=== PATIENT | female | born 1985 ===

== ENCOUNTER 2020-10-29 06:41 | Outpatient (REF) | payer OTHER, SELFPAY ==
[2020-10-29 07:31] LABS: MANUAL DIFF FLAG NO
[2020-10-29 07:42] LABS: Basophils Percent Auto 0.5 % (0-2); Hematocrit 38.3 % (37-47); Hemoglobin 12.9 g/dl (12.0-16.0); Lymphocytes Absolute Auto 1.4 X10*3/uL (1.2-4.9); Lymphocytes Percent Auto 34.7 % (20-40); Mean Corpuscular HGB Conc 33.7 g/dl (31.0-35.0); Mean Corpuscular Hemoglobin 29.7 pg (27.0-33.0); Mean Platelet Volume 11.4 fL (9.4-12.3); Monocytes Absolute Auto 0.2 X10*3/uL (0.1-1.2); Monocytes Percent Auto 5.4 % (2-11); Neutrophils Absolute Auto 2.4 X10*3/uL (2.0-8.3); Neutrophils Percent Auto 58.4 % (45-73); Platelet Count 216 X10*3/uL (160-400); Red Blood Count 4.35 X10*6/uL (4.20-5.50); Red Cell Distribution Width 12.2 % (11.0-16.0); White Blood Count 4.1 X10*3/uL (4.8-10.8)
[2020-10-29 07:47] LABS: Prothrombin Time 11.8 SEC (10.8-13.0)
[2020-10-29 07:51] LABS: Partial Thromboplastin Time 31.4 SEC (24.1-38.0)
[2020-10-29 08:14] LABS: Alanine Aminotransferase 15 U/L (0-31); Alkaline Phosphatase 56 U/L (39-117); Anion Gap 10 (12-20); Aspartate Amino Transferase 17 U/L (5-31); Bilirubin Total 0.2 mg/dL (0.0-1.0); Blood Urea Nitrogen 14 mg/dL (9-16); Calcium 8.5 mg/dL (8.4-10.2); Carbon Dioxide 27 mmol/L (22-29); Chloride 106 mmol/L (96-108); Estimated Glomerular Filt Rate > 60; Glucose Random 93 mg/dL (60-115); Potassium 4.2 mmol/L (3.3-5.1); Sodium 139 mmol/L (135-145); Total Protein 6.6 g/dL (6.5-8.0)
[2020-10-29 08:21] LABS: HCG Quantitative < 2 mIU/mL
[2020-10-29 08:33] LABS: HIV AB/AG Nonreactive (Nonreactive); HIV Num 1 0.07 S/CO (0.00-0.99)
== END 2020-10-29 06:42 | disposition home or self-care (01) ==
LOC: HO.LAB 06:41
PROVIDERS: PCP Internal Medicine; Visit Provider Specialist
DX: Z01.812 Encounter for preprocedural laboratory examination (principal); Z20.822 Contact with and (suspected) exposure to COVID-19
CPT/HCPCS: 36415; 80053; 84702; 85025; 85610; 85730; 87389; U0003; U0005

== ENCOUNTER 2021-03-13 07:13 | Outpatient (REF) | payer OTHER, SELFPAY ==
[2021-03-13 07:57] LABS: MANUAL DIFF FLAG NO
[2021-03-13 08:01] LABS: Basophils Percent Auto 0.2 % (0-2); Eosinophils Absolute Auto 0.1 X10*3/uL (0.0-0.4); Hematocrit 39.1 % (37-47); Hemoglobin 12.6 g/dl (12.0-16.0); Imm Gran Abs Auto 0.01 X10*3/uL (0.00-0.03); Imm Gran Pct Auto 0.2 % (0.0-0.4); Lymphocytes Absolute Auto 1.6 X10*3/uL (1.2-4.9); Lymphocytes Percent Auto 32.8 % (20-40); Mean Corpuscular HGB Conc 32.2 g/dl (31.0-35.0); Mean Corpuscular Hemoglobin 27.3 pg (27.0-33.0); Mean Corpuscular Volume 84.6 fL (80-98); Mean Platelet Volume 11.7 fL (9.4-12.3); Monocytes Absolute Auto 0.3 X10*3/uL (0.1-1.2); Monocytes Percent Auto 6.2 % (2-11); Neutrophils Absolute Auto 2.9 X10*3/uL (2.0-8.3); Neutrophils Percent Auto 59.6 % (45-73); Platelet Count 219 X10*3/uL (160-400); Red Blood Count 4.62 X10*6/uL (4.20-5.50); Red Cell Distribution Width 13.9 % (11.0-16.0); White Blood Count 4.8 X10*3/uL (4.8-10.8)
[2021-03-13 08:25] LABS: Alanine Aminotransferase 11 U/L (0-31); Albumin Level 4.2 g/dL (3.5-5.0); Alkaline Phosphatase 59 U/L (39-117); Anion Gap 10 (12-20); Aspartate Amino Transferase 16 U/L (5-31); Bilirubin Total 0.3 mg/dL (0.0-1.0); Blood Urea Nitrogen 14 mg/dL (9-16); Carbon Dioxide 25 mmol/L (22-29); Chloride 109 mmol/L (96-108); Cholesterol 194 mg/dL; Estimated Glomerular Filt Rate > 60; Glucose Random 90 mg/dL (60-115); HDL Cholesterol 51 mg/dL; LDL Cholesterol Calculated 126 mg/dl; Potassium 4.3 mmol/L (3.3-5.1); Sodium 140 mmol/L (135-145); Total Protein 6.7 g/dL (6.5-8.0); Triglycerides 89 mg/dL
[2021-03-13 08:51] LABS: Urine Cytology See Pathology rpt
== END 2021-03-13 07:14 | disposition home or self-care (01) ==
LOC: HO.LAB 07:13
PROVIDERS: PCP Internal Medicine; Visit Provider Internal Medicine
DX: Z12.4 Encounter for screening for malignant neoplasm of cervix (principal); R31.21 Asymptomatic microscopic hematuria
CPT/HCPCS: 36415; 80053; 80061; 85025; 88112

== ENCOUNTER 2023-03-08 21:13 | Inpatient (IN) | payer OTHER, SELFPAY ==
--- NOTE | ~2023-03-08 | MR_ITS ---
EXAMINATION: MR BRAIN WITHOUT CONTRAST CLINICAL INFORMATION: Cerebrovascular accident. COMPARISON: CT head from 03/08/2023. TECHNIQUE: MRI of the brain was obtained using routine sequences without contrast. FINDINGS: No focal restricted diffusion is demonstrated to suggest acute or subacute cerebral ischemia. No evidence of acute or chronic hemorrhagic products on heme-sensitive imaging. Normal parenchymal signal characteristics. The ventricles are normal in morphology and size. Prominent perivascular space caudal to the left lentiform nucleus. No abnormal mass effect. No midline shift. Normal appearance of the pituitary gland. Normal positioning of the cerebellar tonsils. Normal arterial and venous vascular flow voids are present. Normal, homogeneous marrow signal. No signal abnormalities within the paranasal sinuses or mastoids. MR/MR head/brain wo con IMPRESSION: 1. No acute intracranial abnormalities. 2. No MRI abnormalities to explain the patient's symptoms.
--- NOTE | ~2023-03-08 | CT_ITS ---
EXAMINATION: CT HEAD WITHOUT CONTRAST CLINICAL INFORMATION: Left facial numbness COMPARISON: CT brain 09/27/2012 there is no acute infarction evolution. TECHNIQUE: Contiguous axial imaging was performed from the skull base to vertex without intravenous administration of contrast. This CT examination was performed using dose optimization techniques as appropriate, variously including the following: *Automated exposure control *Adjustment of mA and/or kV according to patient size (this includes techniques or standardized protocols for targeted exams where dose is matched to indication/reason for exam; i.e. extremities or head) *Use of iterative reconstruction technique DLP: 723 mGy-cm FINDINGS: There is no acute intra-axial, extra-axial bleed, masses or midline shift. There is new focal lacunar infarction left basal ganglia new since 09/27/2022 CT. There is no mass effect. No additional areas of hypodensity seen to suspect acute infarction. The davis to white matter difference is maintained normal. The lateral ventricles are symmetrical in size and configuration without enlargement. Bone windows reveal no calvarial abnormality. There is no scalp soft tissue abnormality. Bilateral paranasal sinuses and mastoid air cells are well-aerated.. CT/CT head/brain wo IV con IMPRESSION: 1. Focal lacunar infarction left basal ganglia/lentiform nucleus, new since 09/27/2021 CT. There is no mass effect. 2. There is no acute intracranial bleed.
--- NOTE | ~2023-03-08 | US_ITS ---
EXAMINATION: US EXTRACRANIAL CAROTID DUPLEX, BILATERAL CLINICAL INFORMATION: Stroke COMPARISON: None available. TECHNIQUE: Real-time ultrasound and Doppler techniques (integrating B-mode 2-D vascular images, Doppler spectral analysis and color-flow Doppler imaging) were utilized to interrogate the extracranial carotid arteries, the vertebral arteries and proximal subclavian arteries bilaterally. The degree of stenosis is determined by criteria similar to NASCET. FINDINGS: Right Side: 1. There is no significant atherosclerotic plaque seen in the bifurcation/proximal ICA region. 2. The common carotid artery PSV proximally is 96 cm/s and distally 98 cm/s. 3. The proximal internal carotid artery velocities are 87.6 cm/s systolic and 33 cm/s diastolic. 4. The proximal external carotid artery PSV is 93 cm/s. 5. The vertebral artery shows antegrade flow. 6. The subclavian artery waveforms are normal. Left Side: 1. There is no significant atherosclerotic plaque seen in the bifurcation/proximal ICA region. 2. The common carotid artery PSV proximally is 96 cm/s and distally 113 cm/s. 3. The proximal internal carotid artery velocities are 109 cm/s systolic and 37 cm/s diastolic. 4. The proximal external carotid artery PSV is 75.7 cm/s. 5. The vertebral artery shows antegrade flow. 6. The subclavian artery waveforms are normal. US/US carotid duplex BI IMPRESSION: 1. RIGHT: Normal right internal carotid artery without atherosclerotic plaque or hemodynamically significant stenosis. 2. LEFT: Normal left internal carotid artery without atherosclerotic plaque or hemodynamically significant stenosis.
[2023-03-08 21:31] VITALS: BP 134/81; PULSE 67; RESP 18; TEMP 36.2; O2SAT 100
--- OUTSIDE RECORDS SUMMARY | 2023-03-08 21:49 | XMS_ITS | Continuity of Care Document ---
Author Name Unknown Organization [facility] Address [address] [facility], 4t [address] [place] [id number]- Care Team Providers Care Verification Specialist Name Role Phone Not on Staff, PCP Primary Care Physician Unavail able Encounter [facility] Date(s): 02/24/21 - 04/19/21 [facility] [address] [place] [address], 4th Floor [address] [place] [id number]- Attending Physician: Adrienne Marques MD Referring Physician: Not on Staff, Referring
--- OUTSIDE RECORDS SUMMARY | 2023-03-08 21:49 | XMS_ITS | Continuity of Care Document ---
Author Name Unknown Organization [facility] Address [address] [facility], 4t h Floor [address] [place] [id number]- Care Team Providers Care Ski Patrol Officer Name Role Phone Not on Staff, PCP Primary Care Physician Unavail able Encounter [facility] Date(s): 03/20/21 - 04/19/21 [facility] [address] [facility], 4th Floor [address] [place], [place] [address] Attending Physician: Emiliano Hooks Admitting Physician: Emiliano Hooks Referring Physician: Emiliano Hooks
[2023-03-08 22:28] VITALS: BP 103/60; PULSE 64; RESP 17; O2SAT 97
--- NOTE | 2023-03-08 22:46 | ED_ITS ---
HPI - Neuro Symptoms/Deficit General Chief Complaint: Neuro Symptoms/Deficit Stated Complaint: L sided head pain/feels jaw locked Time Seen by Provider: 03/08/23 21:40 Source: patient Mode of arrival: ambulatory Limitations: no limitations History of Present Illness HPI Narrative: Patient comes emergency room complaining of left-sided visual changes, blurred vision, headache, mild paresthesias. Patient states that approximately 6-7 hours prior to arrival, patient started becoming more concerned about left-sided facial numbness. Patient complaining of a headache, states that she has history of migraines, takes Excedrin. Patient denies any loss of motor function in upper lower extremities, denies any mouth drooping Related Data Allergies Allergy/AdvReac Type Severity Reaction Status Date / Time No Known Allergies Allergy Unverified 06/05/20 15:46 Review of Systems Review of Systems: Constitutional : No Weight loss, No Fever, No Chills, No Night Sweats, No Fatigue, No Malaise ENT/Mouth : No Hearing loss, No Ear Pain, No Nasal Congestion, No Sinus Pain, No Hoarseness, No sore throat, No Rhinorrhea, No Swallowing Difficulty Eyes: No Eye Pain, No Swelling, No Redness, No Foreign Body, No Discharge, No Vision Changes Cardiovascular : No Chest Pain, No SOB, No Dyspnea on Exertion, No Orthopnea, No Edema, No Palpitations Respiratory : No Cough, No Sputum, No Wheezing, No Smoke Exposure, No Dyspnea Gastrointestinal : No Nausea, No Vomiting, No Diarrhea, No Constipation, No abdominal Pain, No Hematochezia, No Melena Genitourinary : no irregular bleeding, No Dysuria, No Urinary Frequency, No Hematuria, No Urinary Incontinence, No Urgency, No Flank Pain, No Urinary Flow Changes, No Hesitancy Musculoskeletal : No joint pain, No Myalgias, No Joint Swelling Skin : No Skin Lesions, No rash Neuro : No Weakness, No Numbness, No Paresthesias, No Loss of Consciousness, No Dizziness, No Headache Psych : No Anxiety/Panic, No Depression, No SI/HI/AH/VH, No Social Issues, Heme/Lymph: No Bruising, No Bleeding,No Lymphadenopathy Endocrine : No Polyuria, No Polydipsia, No Temperature Intolerance PMFSH Social History Social History Advance Directives: No Advance Directives Information Provided: Yes Physical Exam Vital Signs: Vital Signs: Last Vital Signs Temp 97.2 F 03/08/23 21:31 Pulse 64 03/08/23 22:28 Resp 17 03/08/23 22:28 BP 103/60 03/08/23 22:28 Pulse Ox 97 03/08/23 22:28 O2 Del Method Room Air 03/08/23 22:28 BMI result Body Mass Index 30.0 Const: Other: Appearance: Alert. Oriented X3. No acute distress. Eyes: Pupils equal, round and reactive to light. ENT: Pharynx normal. Neck: Normal inspection. Neck supple. No lymph nodes noted. No crepitus CVS: Normal heart rate and rhythm. Pulses normal. Normal S1 and S2 Respiratory: No respiratory distress. Breath sounds normal. No Wheezing. No rales Abdomen: Soft and nontender. No rigidity. No distention. Skin: Skin warm and dry. Normal skin color. Normal skin turgor. Extremities: No lower extremity edema. No Lacerations. No Rash Neuro: Oriented X 3. No motor deficit. No sensory deficit. Moving all extremities. No slurred speech. CN 2 through 12 grossly intact Psych: calm, cooperative, normal affect Medical Decision Making Medical Decision Making MDM Narrative: -patient's NIH score is 0 -patient presented to the emergency room more than 6 hours after the onset of symptoms -CT scan of the head shows a new focal lacunar infarction of the left basal ganglia/lentiform nucleus -patient was given full-dose aspirin in the ED -I discussed the patient with Dr. Deluca, pt being admitted Differential Diagnosis Differential Diagnoses: The differential diagnosis associated with the presenta tion includes (CVA, TIA, stroke complex migraine) Admission/Observation Consideration of admission/observation: Escalation of care including admission/ observation considered Consult Healthcare Provider Management of the patient was discussed with: Hospitalist Lab Data [facility] Lab Attestation statement: I reviewed the patient's lab results. 03/08/23 22:50 03/08/23 22:50 Labs: Lab Results 03/08/23 03/08/23 03/08/23 Range/Units 22:50 22:50 22:50 WBC 6.1 (4.8-10.8) X10*3/uL RBC 4.56 (4.20-5.50) X10*6/uL Hgb 13.0 (12.0-16.0) g/dl Hct 38.7 (37.0-47.0) % MCV 84.9 (80.0-98.0) fL MCH 28.5 (27.0-33.0) pg MCHC 33.6 (31.0-35.0) g/dl RDW 12.2 (11.0-16.0) % Plt Count 217 (160-400) X10*3/uL MPV 10.8 (9.4-12.3) fL Immature Gran % (Auto) 0.2 (0.0-0.4) % Neut % (Auto) 51.2 (45-73) % Lymph % (Auto) 41.3 H (20-40) % [place] % (Auto) 5.9 (2-11) % Eos % (Auto) 1.1 (0-4) % Baso % (Auto) 0.3 (0-2) % Lymph # (Auto) 2.5 (1.2-4.9) X10*3/uL [place] # (Auto) 0.4 (0.1-1.2) X10*3/uL Eos # (Auto) 0.1 (0.0-0.4) X10*3/uL Baso # (Auto) 0.0 (0.0-0.2) X10*3/uL Abs Immat Gran (auto) 0.01 (0.00-0.03) X10*3/uL Absolute Neuts (auto) 3.1 (2.0-8.3) x10*3/uL Absolute Nucleated RBC 0.000 (0.0-0.012) X10*3/uL Nucleated RBC % (auto) 0.0 (0.0-0.2) /100WBC PT 10.7 (10.0-13.1) SEC INR 0.9 (0.9-1.1) Sodium 141 (135-145) mmol/L Potassium 3.7 (3.3-5.1) mmol/L Chloride 107 (96-108) mmol/L Carbon Dioxide 26 (22-29) mmol/L Anion Gap 12 (12-20) BUN 16 (9-16) mg/dL Creatinine 0.77 (0.5-1.4) mg/dL Estim Creat Clear Calc 103.9 Estimated GFR > 60 Random Glucose 108 (60-115) mg/dL Calcium 9.4 (8.4-10.2) mg/dL Total Bilirubin 0.3 (0.0-1.0) mg/dL Direct Bilirubin 0.2 (0.0-0.5) mg/dL AST 23 (5-31) U/L ALT 32 H (0-31) U/L Alkaline Phosphatase 80 (39-117) U/L Total Protein 6.9 (6.5-8.0) g/dL Albumin 3.8 (3.5-5.0) g/dL Radiology Impression Discussion of test interpretation with radiology: I have reviewed the radiol ogist's reading. Radiologist Impression: FINDINGS: There is no acute intra-axial, extra-axial bleed, masses or midline shift. There is new focal lacunar infarction left basal ganglia new since 09/27/2022 CT. There is no mass effect. No additional areas of hypodensity seen to suspect acute infarction. The davis to white matter difference is maintained normal. The lateral ventricles are symmetrical in size and configuration without enlargement. Bone windows reveal no calvarial abnormality. There is no scalp soft tissue abnormality. Bilateral paranasal sinuses and mastoid air cells are well-aerated.. ? CT/CT head/brain wo IV con IMPRESSION: 1.? Focal lacunar infarction left basal ganglia/lentiform nucleus, new since 09/27/2021 CT. There is no mass effect. 2.? There is no acute intracranial bleed. ? NIH Stroke Scale Level of Consciousness: Alert Level of Consciousness Questions: Answers both questions correctly Level of Consciousness Commands: Performs both tasks correctly Best Gaze: Normal Visual: No visual loss Facial Palsy: Normal Motor Arm (Right): No drift Motor Arm (Left): No drift Motor Leg (Right): No drift Motor Leg (Left): No drift Limb Ataxia: Absent Sensory: Normal Best Language: No aphasia Dysarthia: Normal Extinction and Inattention: No abnormality Score: 0 Critical Care Time Critical Care Time Critical Care Time: Yes Total Critical Care Time: 60 Attestation: I have personally provided critical care time. Time includes review of lab data, radiology results, discussion with consultants, and monitoring for potential decompensation. Intervention performed as documented. Discharge Plan Discharge Clinical Impression: Cerebrovascular accident Patient Disposition: Admitted As Inpatient
[2023-03-08 23:01] LABS: MANUAL DIFF FLAG NO
[2023-03-08 23:02] LABS: Basophils Percent Auto 0.3 % (0-2); Eosinophils Absolute Auto 0.1 X10*3/uL (0.0-0.4); Eosinophils Percent Auto 1.1 % (0-4); Hematocrit 38.7 % (37.0-47.0); Imm Gran Abs Auto 0.01 X10*3/uL (0.00-0.03); Imm Gran Pct Auto 0.2 % (0.0-0.4); Lymphocytes Absolute Auto 2.5 X10*3/uL (1.2-4.9); Lymphocytes Percent Auto 41.3 % (20-40); Mean Corpuscular HGB Conc 33.6 g/dl (31.0-35.0); Mean Corpuscular Hemoglobin 28.5 pg (27.0-33.0); Mean Corpuscular Volume 84.9 fL (80.0-98.0); Mean Platelet Volume 10.8 fL (9.4-12.3); Monocytes Absolute Auto 0.4 X10*3/uL (0.1-1.2); Monocytes Percent Auto 5.9 % (2-11); Neutrophils Absolute Auto 3.1 x10*3/uL (2.0-8.3); Neutrophils Percent Auto 51.2 % (45-73); Platelet Count 217 X10*3/uL (160-400); Red Blood Count 4.56 X10*6/uL (4.20-5.50); Red Cell Distribution Width 12.2 % (11.0-16.0); White Blood Count 6.1 X10*3/uL (4.8-10.8)
[2023-03-08 23:07] LABS: INTERNATIONAL NORM RATIO 0.9 (0.9-1.1); Prothrombin Time 10.7 SEC (10.0-13.1)
[2023-03-08 23:20] LABS: Alanine Aminotransferase 32 U/L (0-31); Albumin Level 3.8 g/dL (3.5-5.0); Alkaline Phosphatase 80 U/L (39-117); Anion Gap 12 (12-20); Aspartate Amino Transferase 23 U/L (5-31); Bilirubin Direct 0.2 mg/dL (0.0-0.5); Bilirubin Total 0.3 mg/dL (0.0-1.0); Blood Urea Nitrogen 16 mg/dL (9-16); Calcium 9.4 mg/dL (8.4-10.2); Carbon Dioxide 26 mmol/L (22-29); Chloride 107 mmol/L (96-108); Creatinine Clr Calc Pharmacy 103.9; Estimated Glomerular Filt Rate > 60; Glucose Random 108 mg/dL (60-115); Potassium 3.7 mmol/L (3.3-5.1); Sodium 141 mmol/L (135-145); Total Protein 6.9 g/dL (6.5-8.0)
--- NOTE | 2023-03-08 23:30 | P.HPHOSP_ITS ---
History of Present Illness Date of Service: 03/08/23 Chief Complaint: Facial numbness This is a 37-year-old female with pertinent history of migraine presents to the emergency department for evaluation of left-sided facial numbness and blurring vision. Patient states that around 15:00, she had sudden onset of left-sided facial numbness. It was constant and without any relieving factors. Patient states that she had pain when she tried to open her mouth. Also had associated blurring of vision from the left eye which prompted ER visit. No history of similar symptoms in the past. No personal or family history of CVA. Patient denies chewing or smoking tobacco. No history of OCP use. She denies fever, c hills, chest discomfort, palpitations, shortness of breath, abdominal pain, changes in urinary or bowel habits. Does endorse associated lightheadedness In the emergency department imaging with focal lacunar infarction Review of Systems Constitutional: Constitutional: Reports no additional constitutional complaints Eyes: Eyes: Reports loss of vision Cardiovascular: Cardiovascular: Reports no additional cardiovascular complaints Respiratory: Respiratory: Reports no additional respiratory complaints Gastrointestinal: Gastrointestinal: Reports no additional gastrointestinal c omplaints Genitourinary: Genitourinary: Reports no additional female genitourinary complaints Neurologic: Reports loss of vision and Reports paresthesias PMFSH Medical History Migraine Pertinent family history: No family history of early CAD or CVA Social History Household Members: Children Housing: Apartment Do you presently have visiting nurse or other home services: No Patient Tobacco Use Status: Never used Tobacco Use of substances other than those prescribed or required for medical reasons: No Have you been hit, kicked, punched, or otherwise hurt by someone within the past year? If so, by whom?: No Do you feel safe in your current relationship?: No Current Relationship Is there a partner from a previous relationship who is making you feel unsafe now?: No Are you made to feel afraid or neglected: No Advance Directives: No Advance Directives Information Provided: Yes Do you have thoughts of harming others: None Do you have a plan to hurt others: No Plan Recently lost weight without trying: No Nutrition Risks: On aspiration precautions Patient : No : No Meds Allergies Allergy/AdvReac Type Severity Reaction Status Date / Time No Known Allergies Allergy Unverified 06/05/20 15:46 Physical Exam Vital Signs and Narrative: Vital Signs: Last Vital Signs Temp 97.2 F 03/08/23 21:31 Pulse 64 03/08/23 22:28 Resp 17 03/08/23 22:28 BP 103/60 03/08/23 22:28 Pulse Ox 97 03/08/23 22:28 O2 Del Method Room Air 03/08/23 22:28 BMI result Body Mass Index 30.0 Middle-aged female lying in bed in no distress Neck supple, no JVD Regular rate and rhythm, S1-S2 heard Regular breath sounds bilaterally, no wheezing or crackles appreciated Abdomen soft nontender, no guarding, no rigidity Patient is awake, alert and oriented to self, place, time and person ; no pronator drift, strength 5/5 in bilateral upper and lower extremity, no facial droop, tongue and uvula midline Psych: Normal mood No pedal edema Results Labs 03/08/23 22:50 03/08/23 22:50 Labs: Laboratory Results - last 24 hr 03/08/23 03/08/23 03/08/23 22:50 22:50 22:50 MCV 84.9 MCH 28.5 MCHC 33.6 RDW 12.2 Plt Count 217 MPV 10.8 Immature Gran % (Auto) 0.2 Neut % (Auto) 51.2 Lymph % (Auto) 41.3 H [place] % (Auto) 5.9 Eos % (Auto) 1.1 Baso % (Auto) 0.3 Lymph # (Auto) 2.5 [place] # (Auto) 0.4 Eos # (Auto) 0.1 Baso # (Auto) 0.0 Abs Immat Gran (auto) 0.01 Absolute Neuts (auto) 3.1 Absolute Nucleated RBC 0.000 Nucleated RBC % (auto) 0.0 PT 10.7 INR 0.9 Anion Gap 12 Estim Creat Clear Calc 103.9 Estimated GFR > 60 Random Glucose 108 Calcium 9.4 Total Bilirubin 0.3 Direct Bilirubin 0.2 AST 23 ALT 32 H Alkaline Phosphatase 80 Total Protein 6.9 Albumin 3.8 Imaging Radiologist's Impressions: Impressions Head CT 03/08/23 22:05 IMPRESSION: 1. Focal lacunar infarction left basal ganglia/lentiform nucleus, new since 09/27/2021 CT. There is no mass effect. 2. There is no acute intracranial bleed. Assessment and Plan (1) Cerebrovascular accident: Status: Acute Plan This is a 37-year-old female with pertinent history of migraine presents to the emergency department for evaluation of left-sided facial numbness and blurring vision. #. Acute lacunar infarction. Will admit patient with monitor car operator. Administered antiplatelet agent and high-intensity statin. Consulting Neurology, appreciate assistance. Obtaining MRI of the brain, bilateral carotid ultrasound, echo, lipid panel and A1c to complete workup and optimize risk factors. #. History of migraine. On NSAID p.r.n. DVT prophylaxis: Lovenox Full code Cardiac diet Admit as inpatient and will require two night minimum hospital stay for CVA workup Time Spent With Patient Time: Total time managing care of this patient today ____ minutes. Quality Stroke Does the patient have a stroke diagnosis?: Yes Reason for No Anti-thrombotic by Day Two: N/A - Med Ordered VTE Prior VTE?: No VTE Risk Level:: Medical - moderate - high VTE Device Contraindication: Treatment Not Indicated VTE Drug Contraindication: N/A - Med Ordered
[2023-03-08 23:36] VITALS: BP 125/82; PULSE 71; RESP 18; O2SAT 97
[2023-03-08] MEDS: Aspirin Enteric Coated 325 MG TABLET.DR PO (23:36)
[2023-03-08] MEDS: Acetaminophen 325 MG TABLET 975 MG PO (23:36)
--- NOTE | 2023-03-09 | PC.NURSE ---
Report to Katiana DUNNE [place] [facility] [place]
[2023-03-09] MEDS: Atorvastatin Calcium 40 MG TABLET PO (00:40)
[2023-03-09] MEDS: Enoxaparin Sodium 40 MG/0.4 ML SYRINGE SUBCUT (00:41)
[2023-03-09 00:55] VITALS: BMI 34.3
[2023-03-09 00:56] VITALS: BP 115/75; PULSE 58; RESP 20; TEMP 36.1; O2SAT 99
[2023-03-09 03:28] VITALS: BP 99/54; PULSE 59; RESP 20; TEMP 36.1; O2SAT 94
[2023-03-09 05:43] LABS: Estimated Average Glucose 97 mg/dL
[2023-03-09 06:13] VITALS: BMI 34.6
[2023-03-09 06:47] LABS: MANUAL DIFF FLAG NO
[2023-03-09 06:51] LABS: Basophils Percent Auto 0.5 % (0-2); Eosinophils Percent Auto 0.9 % (0-4); Hematocrit 39.6 % (37.0-47.0); Lymphocytes Absolute Auto 1.9 X10*3/uL (1.2-4.9); Lymphocytes Percent Auto 44.2 % (20-40); Mean Corpuscular HGB Conc 32.8 g/dl (31.0-35.0); Mean Corpuscular Hemoglobin 28.1 pg (27.0-33.0); Mean Corpuscular Volume 85.5 fL (80.0-98.0); Mean Platelet Volume 10.7 fL (9.4-12.3); Monocytes Absolute Auto 0.3 X10*3/uL (0.1-1.2); Monocytes Percent Auto 6.2 % (2-11); Neutrophils Absolute Auto 2.1 x10*3/uL (2.0-8.3); Neutrophils Percent Auto 48.2 % (45-73); Platelet Count 205 X10*3/uL (160-400); Red Blood Count 4.63 X10*6/uL (4.20-5.50); Red Cell Distribution Width 12.4 % (11.0-16.0); White Blood Count 4.3 X10*3/uL (4.8-10.8)
--- NOTE | 2023-03-09 07:00 | CA_ITS ---
Transthoracic Echocardiogram Patient (Last, First, Middle): Johnna Mcleod, Gender: Female Date of : 1985 Age: 37 Procedure Date: 03/09/2023 Procedure Type: Transthoracic [place] [facility] [place]: 162.56 cm Weight: 91.17 kg BSA: 1.96 m2 Heart Rate: 46 bpm BP: 99 / 54 mmHg Cardroom Hand: DARWIN Referring MD: Dee Dee Deluca MD Symptoms: CVA, BUBBLE STUDY NEEDED Study Quality: Adequate/w Bubble study ECG Rhythm: Bradycardia Conclusions: - The left ventricular systolic function is normal. The calculated ejection fraction is 60% by biplane method. - No obvious valvular pathology seen on this study. - There is no evidence of interatrial shunt by agitated saline. Findings Left Ventricle Normal left ventricular cavity size. There is normal left ventricular wall thickness. The left ventricular systolic function is normal. The calculated ejection fraction is 60% by biplane method. There is no evidence of regional wall motion abnormalities. Diastolic function is normal for age. LV peak GLS -19.8%. Right Ventricle Normal right ventricular cavity size and systolic function. Atria Both atria are normal in size. There is no evidence of interatrial shunt by agitated saline. Aortic Valve There is a normal trileaflet aortic valve. There is no aortic valve stenosis. There is no aortic valve regurgitation. Mitral Valve The mitral valve appears normal. There is no mitral valve regurgitation. There is no mitral valve stenosis. Pulmonic Valve The pulmonic valve is likely normal. Tricuspid Valve Normal tricuspid valve structure. There is trace tricuspid valve regurgitation. There is no evidence of pulmonary hypertension. Great Vessels The asc aorta is normal in size. Venous The inferior vena cava is normal in size and collapses greater than 50% with inspiration. There is a possible dilated coronary sinus. Pericardium/Pleural There is no evidence of pericardial effusion. Prior Study Comparison No prior study available for comparison. Recommendations, Care & Conclusions No obvious valvular pathology seen on this study. Measurements 2D Linear Measurements IVSd: 0.74 0.6-0.9/0.6-1.0 cm LVIDd: 4.89 3.9-5.3/4.2-5.9 cm LVIDd Index: 2.49 2.4-3.2/2.2-3.1 cm/m2 LVIDs: 3.22 2.0-3.6 cm LVPWd: 0.76 0.7-1.1 cm LA Diam: 3.50 2.7-3.8/3.0-4.0 cm LAIDs Index: 1.79 1.5-2.3 cm/m2 LV Mass: 149.75 67-162/88-224 g LV Mass Index: 76.40 43-95/49-115 g/m2 LVOT Diam: 2.10 3.0+(-)1.3 cm 2D Systolic Function EF 4C: 60.50 >55% EF 2C: 58.10 >55% EF BiP: 59.90 >55% Mitral Valve MV Pk E: 0.75 MV PK A: 0.58 MV Decel Time: 278.00 E/A: 1.30 E'Lateral: 10.80 E'Medial: 9.25 E/E' Med: 8.10 E/E' Lat: 6.90 PHT: 81.00 MVA PHT: 2.72 Decel Centre: 2.70 Aortic Valve AoV Pk Unruly: 1.01 AoV Mn Unruly: 0.75 AoV VTI: 0.26 AoV Pk Grad: 4.00 Aov Mn Grad: 2.00 KHUSHBOO Cont.VTI: 2.70 LVOT LVOT Pk Unruly: 0.83 LVOT Mn Unruly: 0.53 LVOT VTI: 0.20 LVOT Pk Grad: 3.00 LVOT Mn Grad: 1.00 LVOT Diam: 2.10 LVOT Area: 3.46 Diastolic Function MV Pk E: 0.75 MV Pk A: 0.58 E/A: 1.30 E'Medial: 9.25 E/E' Med: 8.10 E' Laterial: 10.80 E/E' Lat: 6.90 Right Ventricle TAPSE (mm): 22.60 TVS' Unruly: 9.14 Tricuspid Valve TR Pk Unruyl: 1.81 TR Pk Grad: 13.00 RA Press: 3.00 RVSP: 16.00 Great Vessels Aorta Sinus of Valsalva: 3.10 2.0-3.5 cm Ao Asc: 2.80 2.1-3.4 cm Pulmonary Valve PV Pk Unruly: 0.87 Peak PV Grad: 3.00 Updated in Other Vendor System with Status of Final Fam Guillen MD electronically signed on 03/09/2023 12:33:12 PM with status of Final
[2023-03-09 07:07] LABS: Anion Gap 12 (12-20); Blood Urea Nitrogen 14 mg/dL (9-16); Carbon Dioxide 25 mmol/L (22-29); Chloride 107 mmol/L (96-108); Creatinine Clr Calc Pharmacy 114.7; Estimated Glomerular Filt Rate > 60; Glucose Random 94 mg/dL (60-115); Potassium 4.2 mmol/L (3.3-5.1); Sodium 140 mmol/L (135-145)
[2023-03-09 07:08] LABS: Cholesterol 227 mg/dL; HDL Cholesterol 40 mg/dL; LDL Cholesterol Calculated 162 mg/dl; Triglycerides 129 mg/dL
[2023-03-09 07:17] VITALS: BP 110/70; PULSE 52; RESP 16; TEMP 36.6; O2SAT 100
[2023-03-09] MEDS: Aspirin Enteric Coated 81 MG TABLET.DR PO (08:43)
[2023-03-09 08:50] VITALS: BP 110/70; PULSE 52; O2SAT 100
[2023-03-09 11:33] VITALS: BP 103/57; PULSE 56; RESP 16; TEMP 36.7; O2SAT 99
--- NOTE | 2023-03-09 13:17 | HO.PM.IMPN ---
Subjective Subjective Date of Service: 03/09/23 Interval History: Seen and evaluated reporting left sided facial tingling feeling No reported weakness , ambulating fine No changes in mentation No other overnight events Review of Systems Review of Systems: Yes all other systems are reviewed and are negative Physical Exam Vital Signs: Vital Signs: Last Vital Signs Temp 98.1 F 03/09/23 11:33 Pulse 56 03/09/23 11:33 Resp 16 03/09/23 11:33 BP 103/57 L 03/09/23 11:33 Pulse Ox 99 03/09/23 11:33 O2 Del Method Room Air 03/09/23 11:33 BMI result Body Mass Index 34.6 Const: Other: Constitutional : Awake, interactive, not in distress Neck : Normal inspection, Supple Cardiovascular : RRR, no JVP, no lower extremity edema Respiratory : good bilateral air entry, no crackles, wheezes or rhonchi Gastrointestinal: soft, lax, Normal bowel sounds, Non tender Skin : Warm, Dry Neurological : Alert & oriented x3, No focal deficit , CN 2-12 within normal, fine touch sensation intact in face Objective Data Active Medications Acetaminophen (Acetaminophen Supp 650 Mg Supp.Rect) 650 mg [place] Q6H PRN PRN Reason: Pain, Mild (Pain Scale 1-3) Acetaminophen (Acetaminophen 325 Mg Tablet) 650 mg PO Q6H PRN PRN Reason: Pain, Mild (Pain Scale 1-3) Aspirin (Aspirin Enteric Coated 81 Mg Tablet.) 81 mg PO DAILY [facility] Last Admin: 03/09/23 08:43 Dose: 81 mg Documented By: SOFI Atorvastatin Calcium (Atorvastatin Calcium 40 Mg Tablet) 40 mg PO BEDTIME [facility] Last Admin: 03/09/23 00:40 Dose: 40 mg Documented By: CASSIE Enoxaparin Sodium (Enoxaparin Sodium 40 Mg/0.4 Ml Syringe) 40 mg SUBCUT Q24H [facility] Last Admin: 03/09/23 00:41 Dose: 40 mg Documented By: CASSIE Melatonin (Melatonin 3 Mg Tablet) 6 mg PO BEDTIME PRN PRN Reason: Insomnia Ondansetron HCl (Ondansetron Hcl 4 Mg/2 Ml Vial) 4 mg IVPUSH Q8H PRN PRN Reason: Nausea and Vomiting Pharmacy Consult (Consult Rx Perform Med Rec) 1 each MISCELLANE ONCE PRN PRN Reason: Consult order Labs 03/09/23 06:36 03/09/23 06:36 Labs: Laboratory Results - last 24 hr 03/08/23 03/08/23 03/08/23 22:50 22:50 22:50 MCV 84.9 MCH 28.5 MCHC 33.6 RDW 12.2 Plt Count 217 MPV 10.8 Immature Gran % (Auto) 0.2 Neut % (Auto) 51.2 Lymph % (Auto) 41.3 H [place] % (Auto) 5.9 Eos % (Auto) 1.1 Baso % (Auto) 0.3 Lymph # (Auto) 2.5 [place] # (Auto) 0.4 Eos # (Auto) 0.1 Baso # (Auto) 0.0 Abs Immat Gran (auto) 0.01 Absolute Neuts (auto) 3.1 Absolute Nucleated RBC 0.000 Nucleated RBC % (auto) 0.0 PT 10.7 INR 0.9 Anion Gap 12 Estim Creat Clear Calc 103.9 Estimated GFR > 60 Random Glucose 108 Estimat Average Glucose Hemoglobin A1c % Calcium 9.4 Total Bilirubin 0.3 Direct Bilirubin 0.2 AST 23 ALT 32 H Alkaline Phosphatase 80 Total Protein 6.9 Albumin 3.8 Triglycerides Cholesterol LDL Cholesterol, Calc HDL Cholesterol 03/09/23 03/09/23 03/09/23 00:07 06:36 06:36 MCV 85.5 MCH 28.1 MCHC 32.8 RDW 12.4 Plt Count 205 MPV 10.7 Immature Gran % (Auto) 0.0 Neut % (Auto) 48.2 Lymph % (Auto) 44.2 H [place] % (Auto) 6.2 Eos % (Auto) 0.9 Baso % (Auto) 0.5 Lymph # (Auto) 1.9 [place] # (Auto) 0.3 Eos # (Auto) 0.0 Baso # (Auto) 0.0 Abs Immat Gran (auto) 0.00 Absolute Neuts (auto) 2.1 Absolute Nucleated RBC 0.000 Nucleated RBC % (auto) 0.0 PT INR Anion Gap 12 Estim Creat Clear Calc 114.7 Estimated GFR > 60 Random Glucose 94 Estimat Average Glucose 97 Hemoglobin A1c % 5.0 Calcium 9.0 Total Bilirubin Direct Bilirubin AST ALT Alkaline Phosphatase Total Protein Albumin Triglycerides Cholesterol LDL Cholesterol, Calc HDL Cholesterol 03/09/23 06:36 MCV MCH MCHC RDW Plt Count MPV Immature Gran % (Auto) Neut % (Auto) Lymph % (Auto) [place] % (Auto) Eos % (Auto) Baso % (Auto) Lymph # (Auto) [place] # (Auto) Eos # (Auto) Baso # (Auto) Abs Immat Gran (auto) Absolute Neuts (auto) Absolute Nucleated RBC Nucleated RBC % (auto) PT INR Anion Gap Estim Creat Clear Calc Estimated GFR Random Glucose Estimat Average Glucose Hemoglobin A1c % Calcium Total Bilirubin Direct Bilirubin AST ALT Alkaline Phosphatase Total Protein Albumin Triglycerides 129 Cholesterol 227 LDL Cholesterol, Calc 162 HDL Cholesterol 40 Assessment and Plan (1) Cerebrovascular accident: Status: Acute Plan This is a 37-year-old female with pertinent history of migraine presents to the emergency department for evaluation of left-sided facial numbness and blurring vision. # Left sided facial numbness 2/[address] scan showing lacunar infarct in left basal ganglia security monitor ASA and Atorvastatin. Consult Neurology pending MRI of the brain pending bilateral carotid ultrasound pending echo, WNL, EF 60% High LDL and normal A1c PT\OT #. History of migraine. On NSAID p.r.n. DVT prophylaxis: Lovenox Full code Cardiac diet Admit as inpatient and will require overnight minimum hospital stay for CVA workup Time Spent With Patient Time: Total time managing care of this patient today ____ minutes. Quality Stroke Does the patient have a stroke diagnosis?: Yes Reason for No Anti-thrombotic by Day Two: N/A - Med Ordered VTE Prior VTE?: No VTE Risk Level:: Medical - moderate - high VTE Device Contraindication: Treatment Not Indicated VTE Drug Contraindication: N/A - Med Ordered
--- NOTE | 2023-03-09 14:42 | MHC.CM.PN ---
Addendum entered by Ruth Barrera RN 03/09/23 14:51: CLARIFICATION: SISTER/HCP LISSET'S CONTACT NUMBER [phone] Original Note: EMR REVIEWED, CM MET W/PT WHO REPORTS SHE LIVES W/HER 3 KIDS WHO ARE BETWEEN 14-17YO, PT IS INDEPENDENT W/ALL CARE, DENIES USE OF DME AND HOME SERVICES, PT VERIFIES PCP IS FARZANA CAMPBELL, LAURA VACC X2 AND PT HAS COMPLETED A HCP NAMING HER SISTER LISSET GUILLERMO HER [facility] [phone]. PER HOSPITALIST PT TO BE MEDICALLY CLEARED HOME NO SERVICES W/FOLLOW-UP W/PCP, FAMILY FOR TRANSPORT
--- NOTE | 2023-03-09 15:00 | PM.DS ---
DS: Providers Provider Date of Service: 03/09/23 Date of admission: 03/08/23 23:28 Primary care physician: Jossie Rajan MD Consults: 03/08/23 23:28 Consult to Neurology Routine Consulting Provider: [facility] Reason for consultation: CVA DS: Diagnosis Discharge Diagnosis (1) Left facial numbness: Status: Acute DS: Summary Hospital Course Hospital Course: Admission note HPI This is a 37-year-old female with pertinent history of migraine presents to the emergency department for evaluation of left-sided facial numbness and blurring vision.? Patient states that around 15:00, she had sudden onset of left-sided facial numbness.? It was constant and without any relieving factors.? Patient states that she had pain when she tried to open her mouth.? Also had associated blurring of vision from the left eye which prompted ER visit.? No history of similar symptoms in the past.? No personal or family history of CVA.? Patient denies chewing or smoking tobacco.? No history of OCP use.? She denies fever, chills, chest discomfort, palpitations, shortness of breath, abdominal pain, changes in urinary or bowel habits.? Does endorse associated lightheadedness. In the emergency department imaging with focal lacunar infarction. Hospital course The patient was admitted for evaluation of left sided facial numbness with no weakness, droop or pain. CT scan in ED showed possible lacunar infarct in left basal ganglia. she was started on baby aspirin and atorvastatin. An MRI was done and came back negative for any abnormality. Carotid US normal with no narrowings. Echo within normal values with EF of 60%. The patient symptoms were minimal and associated to migraine attack. participated well with PT\OT who felt she is at normal baseline. No evidence of acute CVA. will be discharged home on Sumatriptan for migraine with a plan to follow up with her PCP as outpatient. Use Sumatriptan as needed for Migraine attacks Increase physical activity Follow up with PCP next week for evaluation Time Spent with Patient Time attestation: Total time managing care of this patient today ____ minutes. Discharge coordination time: Greater than 30 minutes Quality: Safe Use of Opioids Does Pt have an Active Cancer Diagnosis on the Problem List?: No Quality: Stroke Does the patient have a stroke diagnosis?: No Physical Exam Vital Signs: Vital Signs: Last Vital Signs Temp 98.1 F 03/09/23 11:33 Pulse 56 03/09/23 11:33 Resp 16 03/09/23 11:33 BP 103/57 L 03/09/23 11:33 Pulse Ox 99 03/09/23 11:33 O2 Del Method Room Air 03/09/23 11:33 BMI result Body Mass Index 34.6 Const: Other: Constitutional : Awake, interactive, not in distress Neck : Normal inspection, Supple Cardiovascular : RRR, no JVP, no lower extremity edema Respiratory : good bilateral air entry, no crackles, wheezes or rhonchi Gastrointestinal: soft, lax, Normal bowel sounds, Non tender Skin : Warm, Dry Neurological : Alert & oriented x3, No focal deficit , CN 2-12 within normal, fine touch sensation intact in face but reports tingling sensation on her left cheeks . DS: Data Data Completed and Pending Labs on day of discharge: Laboratory Results - last 24 hr 03/08/23 03/08/23 03/08/23 22:50 22:50 22:50 WBC 6.1 RBC 4.56 Hgb 13.0 Hct 38.7 MCV 84.9 MCH 28.5 MCHC 33.6 RDW 12.2 Plt Count 217 MPV 10.8 Immature Gran % (Auto) 0.2 Neut % (Auto) 51.2 Lymph % (Auto) 41.3 H [place] % (Auto) 5.9 Eos % (Auto) 1.1 Baso % (Auto) 0.3 Lymph # (Auto) 2.5 [place] # (Auto) 0.4 Eos # (Auto) 0.1 Baso # (Auto) 0.0 Abs Immat Gran (auto) 0.01 Absolute Neuts (auto) 3.1 Absolute Nucleated RBC 0.000 Nucleated RBC % (auto) 0.0 PT 10.7 INR 0.9 Sodium 141 Potassium 3.7 Chloride 107 Carbon Dioxide 26 Anion Gap 12 BUN 16 Creatinine 0.77 Estim Creat Clear Calc 103.9 Estimated GFR > 60 Random Glucose 108 Estimat Average Glucose Hemoglobin A1c % Calcium 9.4 Total Bilirubin 0.3 Direct Bilirubin 0.2 AST 23 ALT 32 H Alkaline Phosphatase 80 Total Protein 6.9 Albumin 3.8 Triglycerides Cholesterol LDL Cholesterol, Calc HDL Cholesterol 03/09/23 03/09/23 03/09/23 00:07 06:36 06:36 WBC 4.3 L RBC 4.63 Hgb 13.0 Hct 39.6 MCV 85.5 MCH 28.1 MCHC 32.8 RDW 12.4 Plt Count 205 MPV 10.7 Immature Gran % (Auto) 0.0 Neut % (Auto) 48.2 Lymph % (Auto) 44.2 H [place] % (Auto) 6.2 Eos % (Auto) 0.9 Baso % (Auto) 0.5 Lymph # (Auto) 1.9 [place] # (Auto) 0.3 Eos # (Auto) 0.0 Baso # (Auto) 0.0 Abs Immat Gran (auto) 0.00 Absolute Neuts (auto) 2.1 Absolute Nucleated RBC 0.000 Nucleated RBC % (auto) 0.0 PT INR Sodium 140 Potassium 4.2 Chloride 107 Carbon Dioxide 25 Anion Gap 12 BUN 14 Creatinine 0.75 Estim Creat Clear Calc 114.7 Estimated GFR > 60 Random Glucose 94 Estimat Average Glucose 97 Hemoglobin A1c % 5.0 Calcium 9.0 Total Bilirubin Direct Bilirubin AST ALT Alkaline Phosphatase Total Protein Albumin Triglycerides Cholesterol LDL Cholesterol, Calc HDL Cholesterol 03/09/23 06:36 WBC RBC Hgb Hct MCV MCH MCHC RDW Plt Count MPV Immature Gran % (Auto) Neut % (Auto) Lymph % (Auto) [place] % (Auto) Eos % (Auto) Baso % (Auto) Lymph # (Auto) [place] # (Auto) Eos # (Auto) Baso # (Auto) Abs Immat Gran (auto) Absolute Neuts (auto) Absolute Nucleated RBC Nucleated RBC % (auto) PT INR Sodium Potassium Chloride Carbon Dioxide Anion Gap BUN Creatinine Estim Creat Clear Calc Estimated GFR Random Glucose Estimat Average Glucose Hemoglobin A1c % Calcium Total Bilirubin Direct Bilirubin AST ALT Alkaline Phosphatase Total Protein Albumin Triglycerides 129 Cholesterol 227 LDL Cholesterol, Calc 162 HDL Cholesterol 40 Imaging MRI - head: Radiologist's impression: ITS Impressions Head CT 03/08/23 22:05 IMPRESSION: 1. Focal lacunar infarction left basal ganglia/lentiform nucleus, new since 09/27/2021 CT. There is no mass effect. 2. There is no acute intracranial bleed. Carotid Doppler Study 03/09/23 10:11 IMPRESSION: 1. RIGHT: Normal right internal carotid artery without atherosclerotic plaque or hemodynamically significant stenosis. 2. LEFT: Normal left internal carotid artery without atherosclerotic plaque or hemodynamically significant stenosis. Brain MRI 03/09/23 12:58 IMPRESSION: 1. No acute intracranial abnormalities. 2. No MRI abnormalities to explain the patient's symptoms. Discharge Plan Discharge Anticipated Discharge Date/Time: 03/09/23 14:55 Patient Disposition: Home, Self-Care Discharge Diagnosis: Facial numbness Referrals: Jossie Rajan MD [Primary Care Provider] - 1 Week Discharge Medications: New sumatriptan succinate 50 mg tablet 50 mg PO Q2-4H PRN (Reason: migraine headache) Qty: 10 2RF Rx Instructions: do not exceed 4 doses per 24 hrs Discharge Orders: Discharge Order (Routine); Ordered 03/09/23 Ordered By: Sara Marin Diet: Advance to usual diet Activity on Discharge: As tolerated Stand Alone Forms: Patient Portal Discharge page Care Plan Goals: Read below Health Concerns: Read below Plan of Treatment: Read below Assessment: You were admitted to the hospital for evaluation of left sided facial numbness. CT scan was concerning for possible stroke. MRI did not show any evidence of stroke. rest of work up including Echo and carotid ultrasound were within normal as well. Your symptoms are likely related to your history of Migraine. Use Sumatriptan as needed for Migraine attacks Increase physical activity Follow up with PCP next week for evaluation Discharge Date/Time: 03/09/23 16:35
--- NOTE | 2023-03-09 15:10 | PM.NEUROCN ---
History of Present Illness Data of Consult Service Date: 03/09/23 Primary Care Provider: Jossie Rajan MD [facility] Reason for consult: Blurred vision 37 years old woman with previous history of migraine came to hospital with left-sided blurred vision facial numbness. She was evaluated for acute stroke and head CT scan and MRI of brain done. When I examine her, she stated that there was no headache. Her symptoms have gotten better. Review of Systems Review of Systems: No recent cold or flu-like illness PMFSH Past Medical History Medical History (Updated 03/09/23 @ 15:11 by Markus Kelsey MD) Migraine Social History Social History Household Members: Children Housing: Apartment Do you presently have visiting nurse or other home services: No Patient Tobacco Use Status: Never used Tobacco Use of substances other than those prescribed or required for medical reasons: No Currently Displaying Signs/Symptoms of Drug Intoxication Withdrawal: No Have you been hit, kicked, punched, or otherwise hurt by someone within the past year? If so, by whom?: No Do you feel safe in your current relationship?: No Current Relationship Is there a partner from a previous relationship who is making you feel unsafe now?: No Are you made to feel afraid or neglected: No Advance Directives: No Advance Directives Information Provided: Yes Do you have thoughts of harming others: None Do you have a plan to hurt others: No Plan Recently lost weight without trying: No Nutrition Risks: On aspiration precautions Patient : No : No service: No Meds Allergies Allergy/AdvReac Type Severity Reaction Status Date / Time No Known Allergies Allergy Unverified 06/05/20 15:46 Active Medications: Current Medications Acetaminophen (Acetaminophen Supp 650 Mg Supp.Rect) 650 mg [place] Q6H PRN PRN Reason: Pain, Mild (Pain Scale 1-3) Acetaminophen (Acetaminophen 325 Mg Tablet) 650 mg PO Q6H PRN PRN Reason: Pain, Mild (Pain Scale 1-3) Aspirin (Aspirin Enteric Coated 81 Mg Tablet.) 81 mg PO DAILY [facility] Last Admin: 03/09/23 08:43 Dose: 81 mg Atorvastatin Calcium (Atorvastatin Calcium 40 Mg Tablet) 40 mg PO BEDTIME [facility] Last Admin: 03/09/23 00:40 Dose: 40 mg Enoxaparin Sodium (Enoxaparin Sodium 40 Mg/0.4 Ml Syringe) 40 mg SUBCUT Q24H [facility] Last Admin: 03/09/23 00:41 Dose: 40 mg Melatonin (Melatonin 3 Mg Tablet) 6 mg PO BEDTIME PRN PRN Reason: Insomnia Ondansetron HCl (Ondansetron Hcl 4 Mg/2 Ml Vial) 4 mg IVPUSH Q8H PRN PRN Reason: Nausea and Vomiting Pharmacy Consult (Consult Rx Perform Med Rec) 1 each MISCELLANE ONCE PRN PRN Reason: Consult order Physical Exam Vital Signs: Vital Signs: Last Vital Signs Temp 98.1 F 03/09/23 11:33 Pulse 56 03/09/23 11:33 Resp 16 03/09/23 11:33 BP 103/57 L 03/09/23 11:33 Pulse Ox 99 03/09/23 11:33 O2 Del Method Room Air 03/09/23 11:33 BMI result Body Mass Index 34.6 Neuro: Other: She is alert and awake with normal spontaneity of speech fluency comprehension and affect. Face is symmetrical. Visual barajas are full. There is no focal weakness. Deep tendon reflexes are trace to 1+ with flexor plantars. Results Labs 03/09/23 06:36 03/09/23 06:36 Labs: Short CBC 03/08/23 03/09/23 Range/Units 22:50 06:36 WBC 6.1 4.3 L (4.8-10.8) X10*3/uL Hgb 13.0 13.0 (12.0-16.0) g/dl Hct 38.7 39.6 (37.0-47.0) % Plt Count 217 205 (160-400) X10*3/uL BMP 03/08/23 03/09/23 22:50 06:36 Sodium 141 140 Potassium 3.7 4.2 Chloride 107 107 Carbon Dioxide 26 25 BUN 16 14 Creatinine 0.77 0.75 Calcium 9.4 9.0 Liver Function 03/08/23 Range/Units 22:50 Total Bilirubin 0.3 (0.0-1.0) mg/dL Direct Bilirubin 0.2 (0.0-0.5) mg/dL AST 23 (5-31) U/L ALT 32 H (0-31) U/L Alkaline Phosphatase 80 (39-117) U/L Albumin 3.8 (3.5-5.0) g/dL MRI of brain did not reveal any significant abnormality. Carotid ultrasound was okay. 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 I recommend reassurance and education and outpatient follow-up. Time Spent With Patient Time: Total time managing care of this patient today ____ minutes. Procedures Date of Service Date of Service: 03/09/23
[2023-03-09 15:33] VITALS: BP 123/57; PULSE 93; RESP 18; TEMP 37.1; O2SAT 98
[2023-03-09] MEDS: SUMAtriptan succinate 50 MG TABLET PO (15:35)
== END 2023-03-09 16:35 | disposition home or self-care (01) | DRG 54 ==
LOC: HO.ED 23:30 → HO.EDOVER 23:34 → HO.IMC 23:47
PROVIDERS: Admitting Provider Student in an Organized Health Care Education/Training Program; Emergency Provider Emergency Medicine; PCP Internal Medicine; Visit Provider Student in an Organized Health Care Education/Training Program
DX: G43.109 Migraine with aura, not intractable, without status migrainosus (principal); H53.8 Other visual disturbances
CPT/HCPCS: 36415; 70450; 70551; 80048; 80061; 80076; 83036; 85025; 85610; 93306; 93356; 93880; 97162; 97166; 99285; J1650

== ENCOUNTER 2023-11-21 11:20 | Outpatient (REF) | payer OTHER, SELFPAY ==
[2023-11-21 11:34] LABS: MANUAL DIFF FLAG NO
[2023-11-21 12:06] LABS: Basophils Percent Auto 0.6 % (0-2); Eosinophils Percent Auto 0.9 % (0-4); Hematocrit 37.8 % (37.0-47.0); Hemoglobin 12.7 g/dl (12.0-16.0); Imm Gran Abs Auto 0.02 X10*3/uL (0.00-0.03); Imm Gran Pct Auto 0.4 % (0.0-0.4); Lymphocytes Absolute Auto 1.8 X10*3/uL (1.2-4.9); Mean Corpuscular HGB Conc 33.6 g/dl (31.0-35.0); Mean Corpuscular Hemoglobin 28.8 pg (27.0-33.0); Mean Corpuscular Volume 85.7 fL (80.0-98.0); Mean Platelet Volume 11.1 fL (9.4-12.3); Monocytes Absolute Auto 0.2 X10*3/uL (0.1-1.2); Monocytes Percent Auto 4.7 % (2-11); Neutrophils Absolute Auto 2.6 x10*3/uL (2.0-8.3); Neutrophils Percent Auto 54.4 % (45-73); Platelet Count 248 X10*3/uL (160-400); Red Blood Count 4.41 X10*6/uL (4.20-5.50); Red Cell Distribution Width 12.5 % (11.0-16.0); White Blood Count 4.7 X10*3/uL (4.8-10.8)
[2023-11-21 12:54] LABS: Alanine Aminotransferase 38 U/L (0-31); Alkaline Phosphatase 89 U/L (39-117); Anion Gap 9 (12-20); Aspartate Amino Transferase 24 U/L (5-31); Bilirubin Total 0.4 mg/dL (0.0-1.0); Blood Urea Nitrogen 15 mg/dL (9-16); Calcium 9.1 mg/dL (8.4-10.2); Carbon Dioxide 28 mmol/L (22-29); Chloride 108 mmol/L (96-108); Estimated Glomerular Filt Rate > 60; Glucose Random 87 mg/dL (60-115); Potassium 3.7 mmol/L (3.3-5.1); Sodium 141 mmol/L (135-145); Total Protein 6.9 g/dL (6.5-8.0)
== END 2023-11-21 11:21 | disposition home or self-care (01) ==
LOC: HO.LAB 11:20
PROVIDERS: PCP Internal Medicine; Visit Provider Internal Medicine
DX: L50.8 Other urticaria (principal); R21 Rash and other nonspecific skin eruption; R63.5 Abnormal weight gain
CPT/HCPCS: 36415; 80053; 85025

== ENCOUNTER 2024-06-21 11:45 | Emergency (ER) | payer OTHER, SELFPAY ==
--- NOTE | ~2024-06-21 | XR_ITS ---
EXAMINATION: XR ABDOMEN KUB CLINICAL INDICATION: Abdominal pain 2 weeks COMPARISON: None available. TECHNIQUE: 2 views of the abdomen. FINDINGS: The bowel gas pattern is normal with no evidence of dilated bowel loops.. Surgical clips in the right upper quadrant. No unusual soft tissue calcifications are noted. No large pneumoperitoneum. The bones are unremarkable. XR/XR KUB IMPRESSION: Nonobstructive bowel gas pattern. Electronically signed by: Igor Laguerre MD 06/21/2024 02:54 PM EDT
[2024-06-21 12:01] VITALS: BP 115/75; PULSE 79; RESP 16; TEMP 37; O2SAT 98; BMI 34.2
--- NOTE | 2024-06-21 12:03 | ED_ITS ---
HPI - Abdominal Pain General Chief Complaint: Abdominal Pain Stated Complaint: abd [id number] Related Data Previous Rx's ?Medication ?Instructions ?Recorded sumatriptan succinate 50 mg tablet 50 mg PO Q2-4H PRN migraine 03/09/23 headache #10 tabs Allergies Allergy/AdvReac Type Severity Reaction Status Date / Time No Known Allergies Allergy Verified 06/21/24 12:06 [facility] Past Medical History Medical History (Updated 06/25/24 @ 10:20 by CEE Ford) Migraine Social History Social History Household Members: Children Housing: Apartment Do you presently have visiting nurse or other home services: No Patient Tobacco Use Status: Never used Tobacco Advance Directives: No Advance Directives Information Provided: No Do you have a plan to hurt others: No Plan service: No Physical Exam ED Vital Signs: BMI result Body Mass Index 34.2 Course Course Course Narrative: This is a Rapid Medical Examination (RME) performed by Carolin Dumont PA-C in triage. Full HPI, ROS, assessment and treatment plan per primary provider in the Main ED. 39 yo female with history of cholecystectomy, tubal ligation presenting to the ER for evaluation of 2 weeks of constant epigastric abdominal pain, worse with eating and laying flat. endorses constipation, last BM yesterday after using an enema. reports ongoing vomiting and decreased PO intake. in triage, brief exam - patient is awake, alert, no distress. appears comfortable. chest is normal to inspection, speaking in full sentences. abd is soft with epigatric and periumbilical tenderness. bowel sounds are decreased but present. no peripheral edema. she appears well. low suspicion for appendicitis Plan: labs, KUB Reevaluation(s) Reevaluation #1: patient eloped prior to completing treatment Medical Decision Making Lab Data 06/21/24 12:55 06/21/24 12:55 Labs: Lab Results 06/21/24 Range/Units 12:55 WBC 4.7 L (4.8-10.8) X10*3/uL RBC 4.46 (4.20-5.50) X10*6/uL Hgb 13.1 (12.0-16.0) g/dl Hct 37.8 (37.0-47.0) % MCV 84.8 (80.0-98.0) fL MCH 29.4 (27.0-33.0) pg MCHC 34.7 (31.0-35.0) g/dl RDW 12.5 (11.0-16.0) % Plt Count 239 (160-400) X10*3/uL MPV 10.9 (9.4-12.3) fL Immature Gran % (Auto) 0.2 (0.0-0.4) % Neut % (Auto) 55.0 (45-73) % Lymph % (Auto) 37.7 (20-40) % [place] % (Auto) 6.1 (2-11) % Eos % (Auto) 0.6 (0-4) % Baso % (Auto) 0.4 (0-2) % Lymph # (Auto) 1.8 (1.2-4.9) X10*3/uL [place] # (Auto) 0.3 (0.1-1.2) X10*3/uL Eos # (Auto) 0.0 (0.0-0.4) X10*3/uL Baso # (Auto) 0.0 (0.0-0.2) X10*3/uL Abs Immat Gran (auto) 0.01 (0.00-0.03) X10*3/uL Absolute Neuts (auto) 2.6 (2.0-8.3) x10*3/uL Absolute Nucleated RBC 0.000 (0.0-0.012) X10*3/uL Nucleated RBC % (auto) 0.0 (0.0-0.2) /100WBC Sodium 141 (135-145) mmol/L Potassium 3.6 (3.3-5.1) mmol/L Chloride 108 (96-108) mmol/L Carbon Dioxide 26 (22-29) mmol/L Anion Gap 11 L (12-20) BUN 14 (9-16) mg/dL Creatinine 0.77 (0.5-1.4) mg/dL Estim Creat Clear Calc 105.0 Estimated GFR > 60 Random Glucose 92 (60-115) mg/dL Calcium 9.1 (8.4-10.2) mg/dL Magnesium 2.4 (1.6-2.6) mg/dL Total Bilirubin 0.3 (0.0-1.0) mg/dL Direct Bilirubin 0.1 (0.0-0.5) mg/dL AST 22 (5-31) U/L ALT 23 (0-31) U/L Alkaline Phosphatase 80 (39-117) U/L Total Protein 7.2 (6.5-8.0) g/dL Albumin 4.2 (3.5-5.0) g/dL Lipase 37 (8-78) U/L Beta HCG, Quant < 2 mIU/mL Urine Color Yellow Urine Appearance Clear Urine pH 6.5 (5.0-9.0) Ur Specific [place] >= 1.030 H (1.005-1.025) Urine Protein Trace (Neg-Trace) mg/dL Urine Glucose (UA) Negative (Negative) mg/dL Urine Ketones Negative (Negative) mg/dL Urine Blood Small (1+) H (Negative) Urine Nitrite Negative (Negative) Ur Leukocyte Esterase Trace H (Negative) Urine RBC 0-2 (0-2) /HPF Urine WBC 0-5 (0-5) /HPF Ur Squamous Epith Cells 6-10 (0-2) /HPF Calcium Oxalate Crystal Present Urine Bacteria None Seen (None Seen) Hyaline Casts 0-2 (0-2) /LPF Discharge Plan Discharge Clinical Impression: Abdominal pain Qualifiers: Abdominal location: unspecified location Qualified Code(s): R10.9 - Unspecified abdominal pain Patient Disposition: Left W/O Completing Treatment Prescriptions: No Action sumatriptan succinate 50 mg tablet 50 mg PO Q2-4H PRN (Reason: migraine headache) Qty: 10 2RF Rx Instructions: do not exceed 4 doses per 24 hrs Discharge Date/Time: 06/21/24 19:40
[2024-06-21 13:06] LABS: MANUAL DIFF FLAG NO
[2024-06-21 13:11] LABS: Appearance Urine Clear; Basophils Percent Auto 0.4 % (0-2); Color Urine Yellow; Eosinophils Percent Auto 0.6 % (0-4); Glucose Urine UA Negative (Negative); Hematocrit 37.8 % (37.0-47.0); Hemoglobin 13.1 g/dl (12.0-16.0); Imm Gran Abs Auto 0.01 X10*3/uL (0.00-0.03); Imm Gran Pct Auto 0.2 % (0.0-0.4); Leukocyte Esterase Urine Trace (Negative); Lymphocytes Absolute Auto 1.8 X10*3/uL (1.2-4.9); Lymphocytes Percent Auto 37.7 % (20-40); Mean Corpuscular HGB Conc 34.7 g/dl (31.0-35.0); Mean Corpuscular Hemoglobin 29.4 pg (27.0-33.0); Mean Corpuscular Volume 84.8 fL (80.0-98.0); Mean Platelet Volume 10.9 fL (9.4-12.3); Monocytes Absolute Auto 0.3 X10*3/uL (0.1-1.2); Monocytes Percent Auto 6.1 % (2-11); Neutrophils Absolute Auto 2.6 x10*3/uL (2.0-8.3); Nitrite Urine Negative (Negative); PH 6.5 (5.0-9.0); Platelet Count 239 X10*3/uL (160-400); Red Blood Count 4.46 X10*6/uL (4.20-5.50); Red Cell Distribution Width 12.5 % (11.0-16.0); Specific Gravity - Urine >= 1.030 (1.005-1.025); UMIC TRIGGER UACC YES; Urine Blood Small (1+) (Negative); Urine Ketones Negative (Negative); Urine Protein Trace mg/dL (Neg-Trace); White Blood Count 4.7 X10*3/uL (4.8-10.8)
[2024-06-21 13:24] LABS: Alanine Aminotransferase 23 U/L (0-31); Albumin Level 4.2 g/dL (3.5-5.0); Alkaline Phosphatase 80 U/L (39-117); Anion Gap 11 (12-20); Aspartate Amino Transferase 22 U/L (5-31); Bilirubin Direct 0.1 mg/dL (0.0-0.5); Bilirubin Total 0.3 mg/dL (0.0-1.0); Blood Urea Nitrogen 14 mg/dL (9-16); Calcium 9.1 mg/dL (8.4-10.2); Carbon Dioxide 26 mmol/L (22-29); Chloride 108 mmol/L (96-108); Estimated Glomerular Filt Rate > 60; Glucose Random 92 mg/dL (60-115); Lipase 37 U/L (8-78); Magnesium 2.4 mg/dL (1.6-2.6); Potassium 3.6 mmol/L (3.3-5.1); Sodium 141 mmol/L (135-145); Total Protein 7.2 g/dL (6.5-8.0)
[2024-06-21 13:31] LABS: Bacteria Urine None Seen (None Seen); Calcium Oxalate Crystals Urine Present; Hyaline Casts Urine 0-2 /LPF (0-2); RBC Urine 0-2 /HPF (0-2); WBC Urine 0-5 /HPF (0-5)
[2024-06-21 13:38] LABS: HCG Quantitative < 2 mIU/mL
== END 2024-06-21 19:40 | disposition left against medical advice (07) ==
LOC: HO.ED 19:23
PROVIDERS: Physician Assistant; Emergency Provider Emergency Medicine; PCP Internal Medicine
DX: R10.9 Unspecified abdominal pain (principal); R11.0 Nausea; R51.9 Headache, unspecified; Z79.899 Other long term (current) drug therapy
CPT/HCPCS: 36415; 74018; 80048; 80076; 81001; 83690; 83735; 84702; 85025; 99282; 99283